=== PATIENT | female | born 1985 | race Caucasian/White ===

== ENCOUNTER 2017-10-21 08:51 | Inpatient (IN) | payer OTHER ==
[2017-10-21] MEDS ORDERED: DEXTROSE 5%-LACTATED RINGERS 1,000 ML IV SCH ×2 (10:00→15:15)
[2017-10-21 10:45] VITALS: BMI 27.3
[2017-10-21 11:25] LABS: BASO % 0.2 % (0-2.0); EOS % 0.4 % (0-4.5); HEMATOCRIT 41.6 % (32.4-45.2); HEMOGLOBIN 13.6 GM/dL (10.7-15.3); LYMPH % 8.8 % (8-40); MCH 30.2 pg (25.7-33.7); MCHC 32.7 g/dl (32.0-36.0); MEAN CELL VOLUME 92.4 fl (80-96); MEAN PLT VOLUME 8.5 fl (7.5-11.1); MONO % 8.1 % (3.8-10.2); NEUT % 82.5 % (42.8-82.8); PLATELET COUNT 154 K/MM3 (134-434); RDW 13.5 % (11.6-15.6); WHITE BLOOD COUNT 12.2 K/mm3 (4.0-10.0)
[2017-10-21 11:55] LABS: ANION GAP 6 (8-16); BLOOD UREA NITROGEN 5 mg/dL (7-18); CALCIUM 8.8 mg/dL (8.5-10.1); CHLORIDE 106 mmol/L (98-107); CO2 27 mmol/L (21-32); CREATININE 0.6 mg/dL (0.55-1.02); GLUCOSE,RANDOM 75 mg/dL (74-106); POTASSIUM 4.2 mmol/L (3.5-5.1); SODIUM 139 mmol/L (136-145)
[2017-10-21] MEDS ORDERED: TUBERCULIN PPD 5 TU/0.1ML SYRINGE (IN PATIENT USE ONLY) ID ONE (12:00)
[2017-10-21 12:04] LABS: INR 1.02 (0.82-1.09); PROTHROMBIN TIME (PATIENT) 11.5 SEC (9.7-13.0)
[2017-10-21 12:07] LABS: ACTIVATED PTT 26.7 SECONDS (25.2-36.5)
[2017-10-21] MEDS ORDERED: FENTANYL/BUPIVACAINE/NS/PF - PCEA - 50 ML DISP.SYRIN EP ONE (15:05)
[2017-10-21] MEDS ORDERED: NALOXONE HCL 0.4 MG/ML VIAL IVPUSH PRN (15:07)
--- NOTE | 2017-10-21 15:07 | HP ---
Past Medical History - Admission Chief Complaint: Labor pain History of Present Illness: 32 yo , LMP 01/07/18, EDC 10/22/17 @ 39.6 weeks gestation, admitted for labor pain. History Source: Patient Limitations to Obtaining History: No Limitations - Past Medical History ...: 1 ...Para: 0 ...Term: 0 ...: 0 ...Spon : 0 ...Induced : 0 ...Multiple Gestation: 0 ...LMP: 01/07/17 ... Weeks Gestation by Dates: 39.6 ...EDC by Dates: 10/22/17 ...EDC by Sono: 10/22/17 - Past Surgical History Past Surgical History: Yes: None Hx Myomectomy: No Hx Transabdominal Cerclage: No - Smoking History Smoking history: Never smoked Have you smoked in the past 12 months: No - Alcohol/Substance Use Hx Alcohol Use: No - Social History History of Recent Travel: No Home Medications - Allergies Allergies/Adverse Reactions: Allergies Allergy/AdvReac Type Severity Reaction Status Date / Time nut - unspecified Allergy Severe Itching Verified 10/21/17 09:16 - Home Medications Home Medications: Ambulatory Orders Vit No.130/Iron/Folic [ Vitamins] 1 each PO DAILY 10/21/17 Family Disease History - Family Disease History Family History: Unremarkable Review of Systems - Review of Systems Constitutional: reports: No Symptoms Eyes: reports: No Symptoms HENT: reports: No Symptoms Neck: reports: No Symptoms Cardiovascular: reports: No Symptoms Respiratory: reports: No Symptoms Gastrointestinal: reports: No Symptoms Genitourinary: reports: Pain Breasts: reports: No Symptoms Reported Musculoskeletal: reports: No Symptoms Neurological: reports: No Symptoms Endocrine: reports: No Symptoms Hematology/Lymphatic: reports: No Symptoms Psychiatric: reports: No Symptoms Pain Intensity: 8 Physical Exam - Maternity Vital Signs: Vital Signs Temperature 98.5 F 10/21/17 13:00 Pulse Rate 79 10/21/17 13:00 Respiratory Rate 18 10/21/17 13:00 Blood Pressure 110/56 10/21/17 13:00 O2 Sat by Pulse Oximetry (%) Constitutional: Yes: Well Nourished Eyes: Yes: Conjunctiva Clear HENT: Yes: Atraumatic Neck: Yes: Supple Cardiovascular: Yes: Regular Rate and Rhythm Lungs: Clear to auscultation - Abdominal Exam/OB Number of Fetuses: Single Presentation: Vertex - Vaginal Exam/OB Dilatation (cm): 3 Amniotic Membrane Status: Intact Station: -1 - Physical Exam Extremities: Yes: WNL ...Motor Strength: WNL Psychiatric: Yes: Alert, Oriented - Labs Lab Results: CBC, BMP 10/21/17 10:30 10/21/17 10:30 Problem List - Problems (1) Pain during labor Code(s): O99.89 - OTH DISEASES AND CONDITIONS COMPL PREG/CHLDBRTH; R52 - PAIN, UNSPECIFIED Assessment/Plan Pain in labor Admit to L&D Analgesia as needed Anticipate
--- NOTE | 2017-10-21 15:12 | PN ---
Progress Note (short form) - Note Progress Note: Patient seen and evaluated, she c/o severe discomfort. FHR: Reactive [place] : + irregular contractions VE : / -1 AROM + meconium ASS / Plan : Active labor Epidural anesthesia Anticipate Problem List - Problems (1) Pain during labor Code(s): O99.89 - OTH DISEASES AND CONDITIONS COMPL PREG/CHLDBRTH; R52 - PAIN, UNSPECIFIED
[2017-10-21] MEDS ORDERED: FENTANYL/BUPIVACAINE/NS/PF - PCEA - 50 ML DISP.SYRIN EP SCH (15:15)
[2017-10-21] MEDS ORDERED: ELECTROLYTE-148 SOLN 1,000 ML IV SCH (15:15)
[2017-10-21] MEDS ORDERED: BUPIVACAINE HCL/PF 0.25% (2.5MG/ML) 10 ML VIAL ONE (17:08)
[2017-10-21] MEDS ORDERED: OXYTOCIN 30 UNITS in 0.9% NS 30 UNIT/500 ML INFUS.BAG IVPB ONE (18:11)
[2017-10-21] MEDS ORDERED: OXYTOCIN 30 UNITS in 0.9% NS 30 UNIT/500 ML INFUS.BAG IVPB SCH (18:15)
[2017-10-21] MEDS ORDERED: OXYTOCIN 20 UNITS in 0.9% NS 20 UNIT/1,000 ML INFUS.BAG IV ONE (18:51)
[2017-10-21] MEDS ORDERED: WITCH HAZEL 50% (TUCKS) 40 PAD/JAR PAD TP PRN (19:30)
[2017-10-21] MEDS ORDERED: BENZOCAINE 28 GM HEMORRHOIDAL OINTMENT TP PRN (19:30)
[2017-10-21] MEDS ORDERED: BENZOCAINE 20% 57 GM BOTTLE TP PRN (19:30)
[2017-10-21] MEDS ORDERED: METHYLERGONOVINE MALEATE 0.2 MG/1 ML AMP IM PRN (19:30)
[2017-10-21] MEDS ORDERED: ACETAMINOPHEN 325 MG TABLET (FP) PO PRN (19:30)
[2017-10-21] MEDS ORDERED: BISACODYL 10 MG SUPP.RECT RC PRN (19:30)
--- NOTE | 2017-10-21 19:34 | PN ---
Delivery - Delivery Vaginal Delivery: Spontaneous Type of Anesthesia: Epidural Episiotomy/Laceration: Midline EBL (cc): 300 Delivery, Single - Feeding Plan Initial Plan: Elected not to breastfeed exclusively throughout hospitalization Remarks - Remarks Remarks: Normal spontaneous vaginal delivery of a live infant over midline episiotomy. Nose / Oropharynx suctioned @ perineum. Cord clamped and cut Placenta expelled spontaneously intact Midline episiotomy repaired with 2.0 Chromic in layers.
[2017-10-21] MEDS ORDERED: OXYTOCIN 20 UNITS in 0.9% NS 20 UNIT/1,000 ML INFUS.BAG IV SCH (19:45)
[2017-10-22 08:23] LABS: EOS % 0.2 % (0-4.5); HEMATOCRIT 34.6 % (32.4-45.2); HEMOGLOBIN 11.6 GM/dL (10.7-15.3); LYMPH % 7.1 % (8-40); MCH 31.2 pg (25.7-33.7); MCHC 33.7 g/dl (32.0-36.0); MEAN CELL VOLUME 92.7 fl (80-96); MEAN PLT VOLUME 8.2 fl (7.5-11.1); MONO % 10.5 % (3.8-10.2); NEUT % 82.2 % (42.8-82.8); PLATELET COUNT 140 K/MM3 (134-434); RBC 3.73 M/mm3 (3.60-5.2); RDW 13.3 % (11.6-15.6); WHITE BLOOD COUNT 16.6 K/mm3 (4.0-10.0)
[2017-10-22] MEDS: FERROUS SO4 325 MG TABLET (FP) PO SCH ×3 (09:00→17:41)
[2017-10-22] MEDS: PRENATAL VITAMINS W/ FOLIC ACID TABLET (FP) PO SCH (09:00)
[2017-10-22] MEDS: IBUPROFEN 600 MG TABLET (FP) PO PRN ×2 (09:01→17:41)
--- NOTE | 2017-10-22 10:37 | PN ---
Post Progress Note - Subjective Subjective: Pt seen/evaluated this a.m. Doing well. Having some cramping and moderate lochia rubra, otherwise feels well. Voiding, tolerating diet, passing flatus. No other complaints/issues. Type of Delivery: Vital Signs: Vital Signs Temperature 98.5 F 10/22/17 09:45 Pulse Rate 84 10/22/17 09:45 Respiratory Rate 20 10/22/17 09:45 Blood Pressure 113/62 10/22/17 09:45 O2 Sat by Pulse Oximetry (%) 100 10/21/17 20:55 Breast Exam: Yes: Soft Uterus: Yes: Fundus Firm, Fundus below umbilicus Abdomen/GI: Yes: Abdomen soft, Passing flatus, Tolerating PO. No: Tender Lochia, amount: Small Extremities: Yes: Calves non-tender Perineum: Yes: Episiotomy Activity: Ambulating - Labs Labs: CBC WBC 16.6 K/mm3 (4.0-10.0) H D 10/22/17 07:52 RBC 3.73 M/mm3 (3.60-5.2) 10/22/17 07:52 Hgb 11.6 GM/dL (10.7-15.3) D 10/22/17 07:52 Hct 34.6 % (32.4-45.2) D 10/22/17 07:52 MCV 92.7 fl (80-96) 10/22/17 07:52 MCH 31.2 pg (25.7-33.7) 10/22/17 07:52 MCHC 33.7 g/dl (32.0-36.0) 10/22/17 07:52 RDW 13.3 % (11.6-15.6) 10/22/17 07:52 Plt Count 140 K/MM3 (134-434) 10/22/17 07:52 MPV 8.2 fl (7.5-11.1) 10/22/17 07:52 Absolute Neuts (auto) 13.6 # 10/22/17 07:52 Neutrophils % 82.2 % (42.8-82.8) 10/22/17 07:52 Lymphocytes % 7.1 % (8-40) L 10/22/17 07:52 Monocytes % 10.5 % (3.8-10.2) H 10/22/17 07:52 Eosinophils % 0.2 % (0-4.5) 10/22/17 07:52 Basophils % 0.0 % (0-2.0) 10/22/17 07:52 Nucleated RBC % 0 % (0-0) 10/22/17 07:52 Problem List - Problems (1) Vaginal delivery Code(s): O80 - ENCOUNTER FOR FULL-TERM UNCOMPLICATED DELIVERY Assessment/Plan 32 y/o PPD#1 s/p normal AFVSS Hgb 11.6 regular diet PO pain meds routine care
[2017-10-22] MEDS ORDERED: SENNOSIDES/DOCUSATE COMBO (SENNA PLUS) TABLET (UD) PO PRN (22:00)
[2017-10-23] MEDS: IBUPROFEN 600 MG TABLET (FP) PO PRN (08:23)
[2017-10-23] MEDS: FERROUS SO4 325 MG TABLET (FP) PO SCH ×2 (08:24→12:29)
[2017-10-23] MEDS: PRENATAL VITAMINS W/ FOLIC ACID TABLET (FP) PO SCH (10:15)
[2017-10-23 10:55] VITALS: BP 121/68; PULSE 88; TEMP 97.4
--- NOTE | 2017-10-23 13:01 | DS ---
Physical Exam-INSURANCE VERIFICATION SPECIALIST Vital Signs: Vital Signs Temperature 97.4 F L 10/23/17 10:00 Pulse Rate 88 10/23/17 10:00 Respiratory Rate 20 10/23/17 10:00 Blood Pressure 121/68 10/23/17 10:00 O2 Sat by Pulse Oximetry (%) 100 10/21/17 20:55 Constitutional: Yes: Well Nourished, No Distress, Calm Eyes: Yes: WNL HENT: Yes: WNL Cardiovascular: Yes: WNL Respiratory: Yes: WNL Gastrointestinal: Yes: WNL ....Post : Yes: Uterus firm, Uterus non-tender Neurological: Yes: Alert, Oriented Psychiatric: Yes: Alert, Oriented Labs: CBC, BMP 10/22/17 07:52 10/21/17 10:30 Delivery - Delivery Vaginal Delivery: Spontaneous Type of Anesthesia: Epidural Episiotomy/Laceration: Midline EBL (cc): 300 Delivery, Single - Stages of Labor Date 1st Stage Initiatied: 10/21/17 Time 1st Stage Initiated: 04:00 Date 2nd Stage Initiated: 10/21/17 Time 2nd Stage Initiated: 19:15 Date of Delivery: 10/21/17 Time of Delivery: 20:29 Time Placenta Delivered: 20:37 Placenta: Yes: Spontaneous - Condition of Insect Control Aide/Wire Drawing Die Maker Present: No Infant Gender: Female Weight: 7 lb 2 oz Position: Right, OA Total Hours ROM (Hrs/Mins): 5H 40M - 1 Minute Total Score: 9 5 Minutes Total Score: 9 - [place] Feeding Plan Initial Plan: Elected not to breastfeed exclusively throughout hospitalization Discharge Summary Reason For Visit: LABOR Current Active Problems Pain during labor (Acute) Vaginal delivery (Acute) Procedures: Principal: Normal Condition: Good - Instructions Diet, Activity, Other Instructions: PT INSTRUCTED TO CALL MD'S FOR 6 WEEK FOLLOW UP APPOINTMENT. No sexual activity or anything in the vagina for 6 weeks. No swimming or submerging in water (showers only) for 6 weeks. Call the office upon discharge to make post appointment. Call the office with any fever (Temp >100.4), heavy vaginal bleeding or severe pain. Disposition: HOME - Home Medications Comprehensive Discharge Medication List: Ambulatory Orders Vit No.130/Iron/Folic [ Vitamins] 1 each PO DAILY 10/21/17 Ibuprofen [Motrin -] 600 mg PO QID PRN #28 tablet 10/23/17
== END 2017-10-23 13:00 | disposition home or self-care (01) | DRG 560 ==
LOC: JDEL 08:51 → JLDR 09:13 → J3W 22:32
PROVIDERS: ADMIT Obstetrics & Gynecology; ATTEND Obstetrics & Gynecology
PROC: 10E0XZZ Delivery of Products of Conception, External Approach (ICD-10-PCS; principal; 2017-10-21)
PROC: 0W8NXZZ Division of Female Perineum, External Approach (ICD-10-PCS; 2017-10-21)
DX: O80 Encounter for full-term uncomplicated delivery (principal); Z3A.39 39 weeks gestation of pregnancy; Z37.0 Single live birth
CPT/HCPCS: 36415; 59025; 59409; 80048; 85025; 85610; 85730; 86593; 86850; 86900; 86901

== ENCOUNTER 2020-05-05 09:38 | Emergency (ER) | payer OTHER ==
[2020-05-05 10:04] VITALS: BP 132/67; PULSE 86; TEMP 97.5; BMI 22.5
[2020-05-05] MEDS ORDERED: LIDOCAINE 5% TOPICAL PATCH TP ONE (10:13)
[2020-05-05] MEDS ORDERED: METHOCARBAMOL 500 MG TABLET PO ONE (10:13)
[2020-05-05] MEDS ORDERED: KETOROLAC TROMETHAMINE 60 MG/2 ML VIAL IM ONE (10:13)
[2020-05-05] MEDS ORDERED: KETOROLAC TROMETHAMINE 30 MG/1 ML VIAL ONE (11:19)
[2020-05-05] MEDS ORDERED: LIDOCAINE 5% TOPICAL PATCH ONE (11:19)
[2020-05-05] MEDS ORDERED: METHOCARBAMOL 500 MG TABLET ONE (11:19)
== END 2020-05-05 11:28 | disposition home or self-care (01) ==
LOC: JERFT 09:38
PROC: 3E0233Z Introduction of Anti-inflammatory into Muscle, Percutaneous Approach (ICD-10-PCS; principal; 2020-05-05)
DX: M54.9 Dorsalgia, unspecified (principal)
CPT/HCPCS: 72070-TC-FY; 99284-25

== ENCOUNTER 2021-03-04 12:51 | Emergency (ER) | payer OTHER ==
[2021-03-04 12:59] VITALS: BP 110/69; PULSE 111; TEMP 98.1; BMI 25.2
[2021-03-04] MEDS ORDERED: ACETAMINOPHEN 1000 MG/100 ML VIAL IVPB ONE (13:30)
[2021-03-04] MEDS ORDERED: ACETAMINOPHEN INJECTION 100 ML IVPB ONE (13:55)
[2021-03-04 14:43] LABS: BASO % 0.2 % (0-2.0); EOS % 2.4 % (0-4.5); LYMPH % 13.3 % (8-40); MCH 30.5 pg (25.7-33.7); MEAN CELL VOLUME 89.6 fl (80-96); MEAN PLT VOLUME 7.8 fl (7.5-11.1); NEUT % 77.1 % (42.8-82.8); PLATELET COUNT 181 10^3/uL (134-434); RBC 4.91 M/mm3 (3.60-5.2); RDW 13.8 % (11.6-15.6); WHITE BLOOD COUNT 10.9 K/mm3 (4.0-10.0)
[2021-03-04 14:48] LABS: ALBUMIN 3.7 g/dl (3.4-5.0); BLOOD UREA NITROGEN 7.6 mg/dL (7-18); CALCIUM 9.4 mg/dL (8.5-10.1)
[2021-03-04 14:52] LABS: CREATININE 0.6 mg/dL (0.55-1.3)
[2021-03-04 14:53] LABS: BILIRUBIN,TOTAL 0.3 mg/dL (0.2-1); TOT PROT 8.1 g/dl (6.4-8.2)
[2021-03-04 15:47] LABS: PH,URINE 6.5 (5.0-8.0); URINE APPEARANCE CLEAR; URINE BILIRUBIN NEGATIVE (NEGATIVE); URINE COLOR YELLOW; URINE GLUCOSE (UA) NEGATIVE (NEGATIVE); URINE KETONE NEGATIVE (NEGATIVE); URINE LEUK ESTERASE TRACE (NEGATIVE); URINE NITRITE NEGATIVE (NEGATIVE); URINE PROTEIN NEGATIVE (NEGATIVE); URINE UROBILINOGEN 0.2 mg/dL (0.2-1.0)
== END 2021-03-04 17:51 | disposition home or self-care (01) ==
LOC: JER 12:51
PROC: 3E033GC Introduction of Other Therapeutic Substance into Peripheral Vein, Percutaneous Approach (ICD-10-PCS; principal; 2021-03-04)
DX: O26.892 Other specified pregnancy related conditions, second trimester (principal); R10.11 Right upper quadrant pain; Z3A.15 15 weeks gestation of pregnancy
CPT/HCPCS: 36415; 76705-TC; 76801-TC; 80053; 81003; 83690; 85025; 87086; 99284-25; J0131